=== PATIENT | female | born 1940 | race Caucasian/White ===

== ENCOUNTER 2016-12-06 08:55 | Emergency (ER) | payer OTHER ==
[2016-12-06 09:21] VITALS: BP 143/65
--- NOTE | 2016-12-06 09:21 | ED Physician Documentation ---
General Adult - HISTORIAN Historian: patient - HPI Chief Complaint: General Adult Onset: minutes Timing: still present Further Comments: yes (76 year old female patient brought in by for evaluation of left 5th toe cut. states he was clipping the patient's toe nail and cut the skin. C/O excessive bleeding. Patient on Plavix.) - ROS CONST: no problems EYES/ENT: none CVS/RESP: none GI/: none MS/SKIN/LYMPH: none NEURO/PSYCH: denies: headache - PAST HX Past History: hypertension, other (CVA, GERD) Other History: diabetes Type 2 Allergies/Adverse Reactions: Allergies Allergy/AdvReac Type Severity Reaction Status Date / Time erythromycin base Allergy Mild hallucinati Verified 12/06/16 09:21 [From E-Mycin] on diltiazem HCl [From Cardizem] Allergy Hives Verified 12/06/16 09:21 acetaminophen AdvReac Mild itching Verified 12/06/16 09:21 [From Darvocet-N 100] morphine AdvReac Mild itching Verified 12/06/16 09:21 propoxyphene napsylate AdvReac Mild itching Verified 12/06/16 09:21 [From Darvocet-N 100] Home Medications: Ambulatory Orders Medication Instructions Recorded Fexofenadine HCl [Allergy Relief] 180 mg PO QDAY 03/01/13 Hydrochlorothiazide [Hydrodiuril] 25 mg PO QDAY 03/01/13 Insulin NPH [Novolin N] 10 units SQ HS 03/01/13 Prednisolone Acetate [Pred Forte 03/01/13 1% Opth Susp] - SOCIAL HX Smoking History: non-smoker - FAMILY HX Family History: No - VITAL SIGNS Vital Signs: Vital Signs Temp Pulse Resp BP Pulse Ox 136/28 03/01/13 13:16 - REVIEWED ASSESSMENTS Nursing Assessment Reviewed: Yes Vitals Reviewed: Yes Progress - Progress Progress: Wound cleaned with NS, silver nitrate to avulsion area, good hemostasis. Dressing applied by RN. Educated patient and on podiatry clinic. General Adult Physical Exam - PHYSICAL EXAM GENERAL APPEARANCE: no distress EENT: CARLO RESPIRATORY: no resp distress CVS: reg rate & rhythm BACK: other (wheelchair bound) SKIN: warm/dry, normal color, other (left 5th toe with .5 cm skin avulsion to distal tip) NEURO: other (pleasant, smiling, cooperative, speech slurred, wheelchair bound) Discharge Clincal Impression: Skin avulsion Referrals: Siddharth Montalvo MD [Primary Care Provider] - 2 Days Additional Instructions: Remove the dressing tonight If the toe begins to bleed again, hold firm pressure for 15 minutes or until bleeding stops. Home Medications: Ambulatory Orders Fexofenadine HCl [Allergy Relief] 180 mg PO QDAY 03/01/13 Hydrochlorothiazide [Hydrodiuril] 25 mg PO QDAY 03/01/13 Insulin NPH [Novolin N] 10 units SQ HS 03/01/13 Prednisolone Acetate [Pred Forte 1% Opth Susp] 03/01/13 Condition: Stable Disposition: 01 HOME, SELF-CARE Decision to Admit: NO Decision Time: 09:20
== END 2016-12-06 09:28 | disposition home or self-care (01) ==
LOC: ED 08:55
DX: S91.105A Unspecified open wound of left lesser toe(s) without damage to nail, initial encounter (principal); W27.8XXA Contact with other nonpowered hand tool, initial encounter; Y93.9 Activity, unspecified; Y99.9 Unspecified external cause status
CPT/HCPCS: 99282; 99283

== ENCOUNTER 2016-12-15 14:25 | Outpatient (CLI) | payer OTHER | END 2016-12-15 14:26 | LOC: POD 14:25 | PROVIDERS: ATTEND Podiatrist | DX: E11.42 Type 2 diabetes mellitus with diabetic polyneuropathy (principal); B35.1 Tinea unguium; L84 Corns and callosities | CPT/HCPCS: G0463 ==

== ENCOUNTER 2016-12-29 19:57 | Emergency (ER) | payer OTHER ==
[2016-12-29 20:31] LABS: BASOPHILS % 0.5 (0.0-1.5); EOSINOPHILS % 3.1 % (0.0-6.8); LYMPHOCYTES # 3.8 # k/uL (0.6-4.0); MEAN CORPUSCULAR HEMOGLOBIN 31.4 pg (28.0-34.0); MONOCYTES # 0.2 # k/uL (0.0-0.9); MONOCYTES % 2.9 % (0.0-11.0)
[2016-12-29 20:37] LABS: eGFR (African) > 60; eGFR (Non-African) > 60
[2016-12-29] MEDS ORDERED: SODIUM BICARBONATE 50 MEQ/50 ML SYRINGE ONE (22:11)
[2016-12-29] MEDS ORDERED: LIDOCAINE 2% PF 5ml Disp Syrin ONE (22:14)
[2016-12-29] MEDS ORDERED: EPINEPHrine 0.1 MG/ML DISP.SYRIN IVP ONE ×2 (22:14→23:03)
[2016-12-29] MEDS ORDERED: DOPAMINE HCL/D5W 400 MG/250 ML BAG IV ONE (22:15)
--- NOTE | 2016-12-29 23:09 | ED Physician Documentation ---
Cardiopulmonary Resuscitation - HISTORIAN Historian: paramedics - [facility] Chief Complaint: CPR Additional Information: Pt. 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 Oxygen: intubated CRP/Thumper: Yes Defibrillated X: 7 (6 x in field, 1 x in ER) IV Access: No (IO access) IV Fluids: Yes (1.5 liters) - MEDICATIONS GIVEN FEED HANDLER How Many Doses of Epinephrine?: 16 (6 in field, 10 in ER) Vasopressin Given?: No How Many Doses of Atropine?: 0 Amiodorone Given?: No Sodium Bicarb Given?: Yes (x2) Lidocaine Given?: Yes (x2) - ROS CONST: none EYES/ENT: none CVS/RESP: none GI/: denies: nausea, vomiting, abdominal pain, problems urinating MS/SKIN/LYMPH: denies: joint pain, rash, swollen glands NEURO/PSYCH: denies: dizziness, fainting, anxiety, depression - PAST HX Past History: AMI, diabetes Type 2, other (cva) Allergies/Adverse Reactions: Allergies Allergy/AdvReac Type Severity Reaction Status Date / Time erythromycin base Allergy Mild hallucinati Verified 12/06/16 09:21 [From E-Mycin] on diltiazem HCl [From Cardizem] Allergy Hives Verified 12/06/16 09:21 acetaminophen AdvReac Mild itching Verified 12/06/16 09:21 [From Darvocet-N 100] morphine AdvReac Mild itching Verified 12/06/16 09:21 propoxyphene napsylate AdvReac Mild itching Verified 12/06/16 09:21 [From Darvocet-N 100] Home Medications: Ambulatory Orders Medication Instructions Recorded Fexofenadine HCl [Allergy Relief] 180 mg PO QDAY 03/01/13 Hydrochlorothiazide [Hydrodiuril] 25 mg PO QDAY 03/01/13 Insulin NPH [Novolin N] 10 units SQ HS 03/01/13 Prednisolone Acetate [Pred Forte 03/01/13 1% Opth Susp] - SOCIAL HX Smoking History: non-smoker Alcohol Use: none Drug Use: none - FAMILY HX Family History: No - VITAL SIGNS Vital Signs: Vital Signs Temp Pulse Resp BP Pulse Ox 143/65 12/06/16 09:28 - REVIEWED ASSESSMENTS Nursing Assessment Reviewed: Yes Progress - Results/Orders Results/Orders: abg ordered, cbc, bmp - Progress Progress: ACLS protocol followed for 25 minutes in ambulance and an additional 49 minutes in ER Critical Care Note - Critical Care Note Total Time (mins): 52 ED Results Lab/Radiology - Lab Results Lab Results: Lab Results 12/29/16 12/29/16 20:17 20:17 WBC 6.30 K/ul K/ul (4.00-12.00) RBC 2.89 M/ul L M/ul (3.90-5.20) Hgb 9.1 g/dL L g/dL (12.0-16.0) Hct 33.2 % L % (34.5-46.5) MCV 114.6 fl H fl (80.0-100.0) MCH 31.4 pg pg (28.0-34.0) MCHC 27.4 g/dL L g/dL (30.0-36.0) RDW 14.6 % H % (11.3-14.3) Plt Count 103 K/mm3 L K/mm3 (130-400) Neut % (Auto) 32.2 % L % (39.0-79.0) Lymph % (Auto) 59.5 % H % (16.0-50.0) Long % (Auto) 2.9 % % (0.0-11.0) Eos % (Auto) 3.1 % % (0.0-6.8) Baso % (Auto) 0.5 (0.0-1.5) Neut # 2.0 # k/uL # k/uL (1.4-7.7) Lymph # 3.8 # k/uL # k/uL (0.6-4.0) Long # 0.2 # k/uL # k/uL (0.0-0.9) Eos # 0.2 # k/uL # k/uL (0.0-0.6) Baso # 0.0 # k/uL # k/uL (0.0-0.5) Reactive Lymphs % 1.8 % % (0.0-5.0) Reactive Lymphs # 0.1 # k/uL # k/uL (0.0-0.8) Sodium 145 mmol/L mmol/L (136-145) Potassium 5.6 mmol/L H mmol/L (3.5-5.0) Chloride 117 mmol/L H mmol/L (98-110) Carbon Dioxide 19 mmol/L L mmol/L (20-32) BUN 22 mg/dL mg/dL (10-26) Creatinine 1.1 mg/dL mg/dL (0.4-1.5) Est GFR ( Amer) > 60 (60 - ) Est GFR (Non-Af Amer) > 60 (60 - ) Glucose 386 mg/dL H mg/dL (70-99) Calcium 8.5 mg/dL mg/dL (8.5-10.5) Total Bilirubin 0.1 mg/dL L mg/dL (0.2-1.2) AST 187 U/L H U/L (0-41) ALT 144 U/L H U/L (0-45) Alkaline Phosphatase 48 U/L U/L (46-116) Total Protein 4.9 g/dL L g/dL (6.0-8.5) Albumin 2.9 g/dL L g/dL (3.0-5.5) - Radiology Radiology Impressions: cxr tube placement above ana - Orders Orders: ED Orders Category Date Time Status CBC AUTO DIFF Routine Lab 12/29/16 20:17 Completed CMP Routine Lab 12/29/16 20:17 Completed Dopamine HCl/D5w [Dobutrex] Med 12/29/16 22:15 Discontinued 400 mg in 250 ml IV .STK-MED EPINEPHrine [Adrenalin] Med 12/29/16 23:03 Discontinued 0.1 mg IVP .STK-MED ONE EPINEPHrine [Adrenalin] Med 12/29/16 22:14 Discontinued 0.9 mg IVP .STK-MED ONE LIDOCAINE 2% PF 5ml Disp Syrin [Xylocaine] Med 12/29/16 22:14 Discontinued 200 mg .ROUTE .STK-MED ONE Sodium Bicarbonate Med 12/29/16 22:11 Discontinued 100 meq .ROUTE .STK-MED ONE Chest Pain Physical Exam - EXAM General Appearance: other (unresponsive) EENT: other (pupils ) Neck: nml inspection Respiratory: other (no spontaneous respirations, equal breath sounds bilat.) CVS: other (no spontaneous pulse) Abdomen: soft, no organomegaly Skin: other (cool) Extremities: no edema Neuro: other (completely obtunded and unresponsive) Discharge Clincal Impression: Cardiopulmonary arrest Home Medications: Ambulatory Orders Fexofenadine HCl [Allergy Relief] 180 mg PO QDAY 03/01/13 Hydrochlorothiazide [Hydrodiuril] 25 mg PO QDAY 03/01/13 Insulin NPH [Novolin N] 10 units SQ HS 03/01/13 Prednisolone Acetate [Pred Forte 1% Opth Susp] 03/01/13 Condition: Critical Disposition: 20 Decision to Admit: NO Decision Time: 20:40
[2017-01-01 07:12] LABS: ABG PH 6.95 (7.35-7.45)
[2017-01-01 07:13] LABS: ABG BASE EXCESS -13.8 (-2 - +2)
== END 2016-12-29 20:36 | disposition expired ==
LOC: ED 19:57
DX: I46.9 Cardiac arrest, cause unspecified (principal)
CPT/HCPCS: 80053; 85025; J0171; J1265; J2001; 36600; 82803; 96374; 96375; 96376; 99291; S1016